=== PATIENT | male | born 1935 | race Caucasian/White ===

== ENCOUNTER → 2016-07-25 | Outpatient (CLI) | payer OTHER ==
[~2016-07-25] VITALS: Ht 154.9 cm; Wt 60.4 kg
[~2016-07-25] MED LIST: ASPI325T PO; ATEN25 PO; CHL25 PO; CYAN50008 PO; FINA5TAB41 PO; LIDOCAINE HCL 4% 50 ML SOLUTION TP ONE; PRAV10TA39 PO; SENN-34 PO; ZINC220 PO
[2016-07-25 13:58] VITALS: BP 134/62
== END | disposition home or self-care (01) ==
LOC: HBOWC 13:14
PROVIDERS: ATTEND Emergency Medicine
DX: T81.4XXD Infection following a procedure, subsequent encounter (principal); I10 Essential (primary) hypertension; E78.00 Pure hypercholesterolemia, unspecified; Z86.718 Personal history of other venous thrombosis and embolism; Z85.46 Personal history of malignant neoplasm of prostate; Z87.891 Personal history of nicotine dependence; Y83.8 Other surgical procedures as the cause of abnormal reaction of the patient, or of later complication, without mention of misadventure at the time of the procedure